=== PATIENT | male | born 1995 | race Caucasian/White ===

== ENCOUNTER 2024-07-04 20:40 | Emergency (ER) | payer MEDICAID ==
[~2024-07-04] VITALS: Ht 152.4 cm; Wt 69.9 kg
--- NOTE | 2024-07-04 21:40 | NUR ---
BIBSELF FROM HOME C/O L ELBOW, BILATERAL KNEE, AND BILATERAL ANKLE PAIN X1 MONTH. DENIES INJURY. AMBULATORY WITH STEADY GAIT.
--- NOTE | 2024-07-04 21:50 | NUR ---
GOVERNMENT EMPLOYEE AT BEDSIDE FOR BLOOD WORKS
[2024-07-04 22:01] LABS: BASOPHILS # (AUTO) 0.1 K/uL (0.0-0.2); BASOPHILS % (AUTO) 1.1 % (0.0-2.0); EOSINOPHILS # (AUTO) 0.7 K/uL (0.0-0.7); EOSINOPHILS % (AUTO) 7.1 % (0.0-6.0); HEMATOCRIT 40 % (39-51); HEMOGLOBIN 13.9 g/dL (13.5-17.5); LYMPHOCYTES # (AUTO) 2.6 K/uL (0.8-4.8); LYMPHOCYTES % (AUTO) 24.4 % (20.0-44.0); MEAN CORPUSCULAR HEMOGLOBIN 30 PG (26.0-33.0); MEAN CORPUSCULAR HGB CONC 35 g/dl (31.0-36.0); MEAN CORPUSCULAR VOLUME 84 fL (80-96); MONOCYTES # (AUTO) 0.8 K/uL (0.1-1.30); MONOCYTES % (AUTO) 7.2 % (2.0-12.0); NEUTROPHILS # (AUTO) 6.3 K/uL (1.8-8.9); NEUTROPHILS % (AUTO) 60.2 % (43.0-81.0); PLATELET COUNT (AUTO) 301 K/uL (150-450); RED BLOOD CELL COUNT(AUTO) 4.69 MIL/uL (4.5-6.0); RED CELL DISTRIBUTION WIDTH 13.6 % (11.5-15.0); WHITE BLOOD COUNT (AUTO) 10.5 K/uL (4.3-11.0)
[2024-07-04 22:21] LABS: ALBUMIN 3.5 g/dL (3.4-5.0); BILIRUBIN,DIRECT 0.2 mg/dL (0.0-0.2); BILIRUBIN,TOTAL 0.7 mg/dL (0.2-1.0); CALCIUM, SERUM 8.4 mg/dL (8.5-10.1); CREATININE 1.5 mg/dL (0.6-1.3); TOTAL PROTEIN, SERUM 7.9 g/dL (6.4-8.2)
[2024-07-04 23:21] VITALS: BP 136/85; TEMP 98.2; O2SAT 100
--- NOTE | 2024-07-04 23:21 | NUR ---
Patient discharged to home in stable condition. Written and verbal after care instructions given. Patient verbalizes understanding of instruction.
== END 2024-07-04 23:21 | disposition home or self-care (01) ==
LOC: ER 20:52
DX: R60.0 Localized edema (principal); E86.0 Dehydration; Z60.2 Problems related to living alone
CPT/HCPCS: 36415; 71045-TC; 80048-TC; 80076-TC; 83880; 85025-TC